=== PATIENT | male | born 1995 | race Caucasian/White ===

== ENCOUNTER 2016-06-23 05:53 | Emergency (ER) | payer SELFPAY ==
[~2016-06-23] VITALS: Ht 185.4 cm; Wt 68.0 kg
[~2016-06-23 05:53] MED LIST: ACET-2267 PO; ACET-819 PO; ACHD5005 PO; AZIT250T5 PO; CEPH500T PO; CLIN-62 PO; CLIN300C11 PO; CLN150C PO; HYDR1TAB8 PO; IBP600T1 PO; IBP800T PO; IBUP-30 PO; PRD20T PO; Robitussin; SULF1TAB38 PO; TRAM50TA2 PO
--- OUTSIDE RECORDS SUMMARY | 2016-06-23 06:01 | XMS REPORT | Continuity of Care Document ---
Author Author [facility] Organization [facility] Address Unknown Phone Unavailable Care Team Providers Care Anesthesiology Teacher Name Role Phone SHAHIDA GREENBERG DO PCP Insurance Providers Payer Name Policy Number Subscriber Name Relationship Self Pay Pato Hatch 18 Self / Same As Patient Advance Directives Directive Response Recorded Date/Time Advance Directives No 03/25/16 5:15pm Health Care Power of Rv Technician No 03/25/16 5:15pm Organ Donor No 03/25/16 5:15pm Resuscitation Status Full Code 03/25/16 5:15pm Chief Complaint and Reason for Visit Chief Complaint Allergic Reaction Reason for Visit [id number] Problems Active Problems Medical Problem Onset Date Status Acute urticaria Unknown Acute Acute urticaria Unknown Acute Alcohol abuse Unknown Acute Anxiety Unknown Acute Concussion without loss of consciousness Unknown Acute Corneal abrasion Unknown Acute Dental abscess Unknown Acute Dental caries Unknown Acute Dental caries Unknown Acute Gingivitis Unknown Acute Hives Unknown Acute Injury of head, face and neck Unknown Acute Injury resulting from fall from height Unknown Acute Laceration of face Unknown Acute Pharyngitis Unknown Acute Shoulder pain Unknown Acute dental fracture Unknown Acute Medications Current Home Medications Medication Dose Units Route Directions Days/Qty Instructions Start Date Prednisone 20 Mg 20 Mg Oral Daily 4 03/25/16 Past Home Medications Medication Directions Ordered Status Trimethoprim/Sulfamethoxazole 1 Ea Tablet, 1 Ea Oral Twice A Day 11/29/11 Discontinued Prednisone 20 Mg Tab, 20 Mg Oral As Directed 03/18/12 Discontinued Prednisone 20 Mg Tab, 20 Mg Oral Daily 11/22/12 Discontinued Clindamycin Hcl 150 Mg Cap, 3 Each Oral Every 8HRS 02/24/13 Discontinued Ibuprofen 800 Mg Tab, 800 Mg Oral Give Every 8 Hrs On Schedule as needed Discontinued Ibuprofen 800 Mg Tab, 800 Mg Oral Give Every 8 Hrs On Schedule as needed for Pain 04/16/13 Discontinued Acetaminophen/Hydrocodone Bitart 1 Each Tablet, 1-2 Each Oral Every 6 Hours as needed for Pain 04/16/13 Discontinued Clindamycin Hcl 150 Mg Cap, 300 Mg Oral Every 6 Hours 04/18/13 Discontinued Acetaminophen/Hydrocodone Bitart 1 Each Tablet, 1-2 Tab Oral Every 6 Hours as needed for Pain 04/18/13 Discontinued Ibuprofen 600 Mg Tablet, 600 Mg Oral Every 8HRS as needed for Pain 04/18/13 Discontinued Clindamycin Hcl 150 Mg Cap, 300 Mg Oral Every 6 Hours 04/18/13 Discontinued Acetaminophen 500 Mg Tablet, 500 Mg Oral Every 6 Hours as needed for Pain Discontinued Ibuprofen 200 Mg Tablet, 600 Mg Oral Every 6 Hours as needed for Pain Discontinued Hydrocodone Bitartrate/Ibuprofen 1 Each Tablet, 1 Each Oral Every 4HRS for Pain 04/21/13 Discontinued Clindamycin Hcl 150 Mg Cap, 2 Each Oral Four Times Daily 04/21/13 Discontinued Clindamycin Hcl 300 Mg Capsule, 300 Mg Oral Four Times Daily 10/01/15 Discontinued Acetaminophen 500 Mg Tablet, 1000 Mg Oral As Needed 03/20/16 Discontinued [Robitussin] , 03/20/16 Discontinued Azithromycin 250 Mg Tablet, 250 Mg Oral As Directed 03/20/16 Discontinued Azithromycin 250 Mg Tablet, 250 Mg Oral As Directed 03/20/16 Discontinued Social History Social History Problem Response Recorded Date/Time Alcohol Use Occasionally Uses 09/30/2015 9:50pm Recreational Drug Use No 09/30/2015 9:50pm Recent Foreign Travel No 01/25/2014 1:31am Recent Infectious Disease Exposure No 01/25/2014 1:31am Hospitalization with Isolation Denies 01/25/2014 1:31am Smoking Status Current Everyday Smoker 03/25/2016 5:15pm Do you dip or chew tobacco? Yes 09/30/2015 9:50pm Type Used Cigarettes 03/25/2016 5:15pm Recent Hopitalizations Y ed visit 03/25/2016 5:15pm Hospitalization with Isolation Denies 01/25/2014 1:31am Query Response Start Date Stop Date Smoking Status Current Everyday Smoker 03/21/2013 Hospital Discharge Instructions No hospital discharge instructions. Plan of Care Discharge Date 03/25/16 6:38pm Disposition 01 HOME, SELF-CARE Condition at Discharge Improved Instructions/Education Provided Hives Prescriptions See Medication Section Referrals SHAHIDA GREENBERG DO - Primary Care Physician Additional Instructions/Education Avoid exposures that causing door hives. Consider allergy testing with a document processing specialist. Keep Benadryl on hand and take 50 mg at recurrence of hives. Return to care if symptoms worsen area call 911 or present immediately to the emergency room if you have difficulty breathing, tongue swelling, lip swelling, or throat tightening. Use the prednisone as prescribed over the next few days. All discharge instructions reviewed with patient and/or family. Voiced understanding. Functional Status No functional status results. Allergies, Adverse Reactions, Alerts Allergen Type Severity Reaction Status Last Updated Penicillins ([id number]) Allergy Mild Active 11/07/08 Immunizations No immunization records. Vital Signs Acute Vital Signs Vital Response Date/Time Temperature (Fahrenheit) 97.9 degrees F (97.6 - 99.5) 03/25/2016 5:15pm Temperature (Calculated Celsius) 36.04897 degrees C (36.4 - 37.5) 03/25/2016 5:15pm Temperature Source Temporal 03/25/2016 5:15pm Pulse Rate (adult) 83 bpm (60 - 90) 03/25/2016 5:15pm Respiratory Rate 18 bpm (12 - 24) 03/25/2016 5:15pm O2 Sat by Pulse Oximetry 95 % (88 - 100) 03/25/2016 5:15pm Blood Pressure 144/80 mm Hg 03/25/2016 5:15pm Blood Pressure Mean 101 mm Hg 03/25/2016 5:15pm Pain Numeric Pain Scale 8 03/25/2016 5:15pm Height (Feet) 6 feet 03/25/2016 5:15pm Height (Inches) 1 inches 03/25/2016 5:15pm Height (Calculated Centimeters) 185.902852 cm 03/25/2016 5:15pm Weight (Pounds) 155 pounds 03/25/2016 5:15pm Weight (Ounces) 4.0 oz 03/25/2016 5:15pm Weight (Calculated Grams) 87974.818 gm 03/25/2016 5:15pm Weight (Calculated Kilograms) 70.711574 kilograms 03/25/2016 5:15pm Calculated BMI 23.49 03/25/2016 5:15pm Capillary Refill Capillary Refill Less Than 3 Seconds 03/25/2016 5:15pm Results Laboratory Results Test Name Result Units Flags Reference Collection Date/Time Result Date/ Time Comments White Blood Count 8.7 10^3/uL 4.3-11.0 03/20/2016 8:40pm 03/20/2016 8: 54pm Red Blood Count 4.69 10^6/uL 4.35-5.85 03/20/2016 8:40pm 03/20/2016 8: 54pm Hemoglobin 13.6 G/DL 13.3-17.7 03/20/2016 8:40pm 03/20/2016 8:54pm Hematocrit 39 % L 40-54 03/20/2016 8:40pm 03/20/2016 8:54pm Mean Corpuscular Volume 83 FL 80-99 03/20/2016 8:40pm 03/20/2016 8: 54pm Mean Corpuscular Hemoglobin 29 PG 25-34 03/20/2016 8:40pm 03/20/2016 8: 54pm Mean Corpuscular Hemoglobin Concent 35 G/DL 32-36 03/20/2016 8:40pm 8:54pm Red Cell Distribution Width 12.6 % 10.0-14.5 03/20/2016 8:40pm 2015 8:54pm Platelet Count 183 10^3/uL 130-400 03/20/2016 8:40pm 03/20/2016 8:54pm Mean Platelet Volume 9.7 FL 7.4-10.4 03/20/2016 8:40pm 03/20/2016 8: 54pm Neutrophils (%) (Auto) 63 % 42-75 03/20/2016 8:40pm 03/20/2016 8:54pm Lymphocytes (%) (Auto) 24 % 12-44 03/20/2016 8:40pm 03/20/2016 8:54pm Monocytes (%) (Auto) 13 % H 0-12 03/20/2016 8:40pm 03/20/2016 8:54pm Eosinophils (%) (Auto) 0 % 0-10 03/20/2016 8:40pm 03/20/2016 8:54pm Basophils (%) (Auto) 0 % 0-10 03/20/2016 8:40pm 03/20/2016 8:54pm Neutrophils # (Auto) 5.5 X 10^3 1.8-7.8 03/20/2016 8:40pm 03/20/2016 8: 54pm Lymphocytes # (Auto) 2.0 X 10^3 1.0-4.0 03/20/2016 8:40pm 03/20/2016 8: 54pm Monocytes # (Auto) 1.1 X 10^3 H 0.0-1.0 03/20/2016 8:40pm 03/20/2016 8: 54pm Eosinophils # (Auto) 0.0 10^3/uL 0.0-0.3 03/20/2016 8:40pm 03/20/2016 8 :54pm Basophils # (Auto) 0.0 10^3/uL 0.0-0.1 03/20/2016 8:40pm 03/20/2016 8: 54pm Sodium Level 136 MMOL/L 135-145 03/20/2016 8:40pm 03/20/2016 9:15pm Potassium Level 3.8 MMOL/L 3.6-5.0 03/20/2016 8:40pm 03/20/2016 9:15pm Chloride Level 105 MMOL/L 98-107 03/20/2016 8:40pm 03/20/2016 9:15pm Carbon Dioxide Level 23 MMOL/L 21-32 03/20/2016 8:40pm 03/20/2016 9: 15pm Anion Gap 8 MMOL/L -14 03/20/2016 8:40pm 03/20/2016 9:15pm Blood Urea Nitrogen 7 MG/DL 7-18 03/20/2016 8:40pm 03/20/2016 9:15pm Creatinine 0.85 MG/DL 0.60-1.30 03/20/2016 8:40pm 03/20/2016 9:15pm BUN/Creatinine Ratio 8 03/20/2016 8:40pm 03/20/2016 9:15pm Estimat Glomerular Filtration Rate > 60 03/20/2016 8:40pm 2015 9:15pm GFR INTERPRETIVE DATA UNITS FOR ESTIMATED GFR (eGFR): mL/min/1.73 M2 REFERENCE RANGE FOR ESTIMATED GFR (eGFR) eGFR NORMAL eGFR >60 MODERATELY DECREASED eGFR 30-59 SEVERLY DECREASED eGFR 15-29 KIDNEY FAILURE <15 (OR DIALYSIS) Glucose Level 106 MG/DL H 70-105 03/20/2016 8:40pm 03/20/2016 9:15pm Calcium Level 8.7 MG/DL 8.5-10.1 03/20/2016 8:40pm 03/20/2016 9:15pm Total Bilirubin 0.5 MG/DL 0.1-1.0 03/20/2016 8:40pm 03/20/2016 9:15pm Alkaline Phosphatase 43 U/L 40-136 03/20/2016 8:40pm 03/20/2016 9:15pm Aspartate Amino Transf (AST/SGOT) 15 U/L 5-34 03/20/2016 8:40pm 2015 9:15pm Alanine Aminotransferase (ALT/SGPT) 11 U/L 0-55 03/20/2016 8:40pm 03/20 9:15pm Total Protein 6.6 G/DL 6.4-8.2 03/20/2016 8:40pm 03/20/2016 9:15pm Albumin 4.1 G/DL 3.2-4.5 03/20/2016 8:40pm 03/20/2016 9:15pm Monoscreen NEGATIVE NEGATIVE 03/20/2016 8:40pm 03/20/2016 9:09pm Group A Streptococcus Screen NEGATIVE NEGATIVE 03/20/2016 8:40pm 9:11pm Microbiology Results Procedure Source Result Collection Date/Time Result Date/Time Throat Culture Throat No Beta Strep isolated 03/20/2016 8:40pm 03/21/2016 3:30pm Procedures No known history of procedures. Encounters Encounter Location Arrival/Admit Date Discharge/Depart Date Attending Provider Departed Emergency Room [facility] 03/25/16 4:53pm 03/25 6:38pm JUDY ESPINOZA MD Departed Emergency Room [facility] 03/20/16 7:50pm 03/20 9:37pm KOKI POLO APRN Recent Diagnosis
[2016-06-23] MEDS ORDERED: CEPHALEXIN 250 MG (KEFLEX) CAP PO STA (06:16)
[2016-06-23] MEDS ORDERED: HYDROcodone/APAP 5 MG/325 MG (LORTAB) TAB PO STA (06:16)
--- NOTE | 2016-06-23 06:23 | ED EENT ---
History of Present Illness General Chief Complaint: Dental Problems/Pain Stated Complaint: DENTAL PAIN Nursing Triage Note: PT TO ED 8 W/ S.O. FOR C/O DENTAL PAIN ONSET X2 MOS, WORSE YESTERDAY. REPORTS PREVIOUS ABX TX FROM [facility] BUT DENIES IMPROVEMENT Source: patient Exam Limitations: no limitations History of Present Illness Time seen by provider: 06:00 Initial Comments Here with complaint of dental tenderness to the right upper side where he has a known dental caries. He knows he needs to get in with a dentist. He previously had an infection there and was on antibiotics. Things got better. He has not gone back to the dentist yet. Denies fever or chills. Denies nausea or vomiting. Denies breathing or swallowing problems. He has been off antibiotics for a month now. Timing/Duration: this morning Severity: moderate Location: mouth, dental Associated Symptoms: facial pain/swellingNo fever Allergies and Home Medications Allergies Coded Allergies: Penicillins (Unverified Allergy, Mild, 11/07/08) Home Medications Cephalexin 500 Mg Tablet #21 500 MG PO TID Prescribed by: RAMESH SHOEMAKER on 04/15/16 1014 Tramadol HCl 50 Mg Tablet #20 50 MG PO Q6H PRN PRN PAIN Prescribed by: RAMESH SHOEMAKER on 04/15/16 1014 Review of Systems Constitutional: see HPINo chills, No fever Eyes: No Symptoms Reported Ears: No Symptoms Reported Nose: no symptoms reported Mouth: see HPI pain swelling Throat: no symptoms reporteddenies neck stiffness, denies hoarse Respiratory: no symptoms reportedNo short of breath, No wheezing Cardiovascular: no symptoms reported Gastrointestinal: no symptoms reportedNo nausea, No vomiting Past Zdsgaea-Hzrkch-Sxwgzh Hx Patient Social History Alcohol Use: Denies Use Recreational Drug Use: No Smoking Status: Current Everyday Smoker Type Used: Cigarettes Former Smoker/When Quit: Mar 21, 2013 Recent Foreign Travel: No Contact w/Someone Who Travel: No Recent Infectious Disease Expo: No Recent Hopitalizations: No Immunizations Up To Date Tetanus Booster (TDap): Less than 5yrs Seasonal Allergies Seasonal Allergies: No Surgeries HX Surgeries: Yes (DENTAL, JAW SURGERY, MRSA I&D) Respiratory Hx Respiratory Disorders: No Cardiovascular Hx Cardiac Disorders: No Neurological Hx Neurological Disorders: Yes ("BRAIN CYST") Reproductive System Hx Reproductive Disorders: No Genitourinary Hx Genitourinary Disorders: No Gastrointestinal Hx Gastrointestinal Disorders: No Musculoskeletal Hx Musculoskeletal Disorders: No Endocrine Hx Endocrine Disorders: No HEENT HX ENT Disorders: Yes (nose cyst) Cancer Hx Cancer: No Psychosocial Hx Psychiatric Problems: No Integumentary HX Skin/Integumentary Disorder: Yes (OCC. HIVES--UNKNOWN ETIOLOGY: MRSA) Blood Transfusions Hx Blood Disorders: No Adverse Reaction to a Blood Tr: No Reviewed Nursing Assessment Reviewed/Agree w Nursing PMH: Yes Family Medical History Family Medial History: Cancer maternal grandmother, Onset:60 years & older Chest pain 03 FATHER, Onset:30's - 40 Family history: Diabetes mellitus maternal grandmother, Onset:50's - 60 maternal aunt, Onset:40's - 50 Family history: Hypertension 03 FATHER, Onset:30's - 40 Heart disease 03 FATHER, Onset:30's - 40 Kidney disease 03 MOTHER, Onset:15's - 20 09 SISTER, Onset:10's - 15 Physical Exam Vital Signs Vital Sign - Last 12Hours 06/23/16 06:00 Temp 97.2 Pulse 90 Resp 20 B/P 132/87 Pulse Ox 99 O2 Delivery Room Air General Appearance: WD/WN no apparent distress Eyes: bilateral eye EOMI, bilateral eye PERRL, bilateral eye normal inspection Ears: bilateral ear TM normal, bilateral ear auricle normal, bilateral ear canal normal Nose: normal inspection Mouth/Throat: pharynx normal dental tenderness maxillary swelling (right side near tooth #3)No pharynx swelling, No trismus, No uvula swelling Neck: full range of motion suppleNo lymphadenopathy (R), No lymphadenopathy (L ) Cardiovascular: regular rate, rhythm no murmur Respiratory: lungs clear normal breath sounds Neurologic/Psychiatric: alert oriented x 3 Skin: normal color warm/dry other (no erythema to the face noted. There is swelling on the right maxillary region.) Laceration Repair : Suture Size: 5-0 Progress/Results/Core Measures Results/Orders My Orders Orders-RAMESH SHOEMAKER MD Hydrocodone/Apap 5/325 Tablet (Lortab 5 (06/23/16 06:16) Cephalexin Capsule (Keflex Capsule) (06/23/16 06:16) Vital Signs/I&O Vital Sign - Last 12Hours 06/23/16 06:00 Temp 97.2 Pulse 90 Resp 20 B/P 132/87 Pulse Ox 99 O2 Delivery Room Air Blood Pressure Mean: 102 Progress Note : Progress Note Seen and evaluated. Keflex 500 mg by mouth. Hydrocodone 5/325 one tab by mouth. I did discuss with him at length about the importance of following up with a dentist. He reports understanding. Discharged home with return precautions. Patient verbalize understanding instructions and agreement with plan. Departure Impression Impression: Primary Impression: Dental abscess Additional Impression: Dental caries Disposition: HOME, SELF-CARE Condition: Stable Departure-Patient Inst. Decision time for Depature: 06:23 Referrals: SHAHIDA GREENBERG DO (PCP/Family) Primary Care Physician Patient Instructions: Tooth Abscess (DC), Tooth Decay, Adult (DC) Add. Discharge Instructions: All discharge instructions reviewed with patient and/or family. Voiced understanding. Take antibiotics as directed. You may take ibuprofen 800 mg every 8 hours as needed for pain. He may take the pain medicine as prescribed. If you are not taking that medicine he may take Tylenol 1000 mg every 8 hours as needed for pain. Do not take with prescribed pain medicine as both have Tylenol in it. It is vitally important that you follow-up with the dentist as soon as possible as the tooth needs to be repaired and this problem will continue if you do not have dental intervention. Return for worse pain, fever, vomiting, weakness, breathing problems or other concerns as needed. Scripts Hydrocodone/Acetaminophen (Hydrocodon -Acetaminophen 5-325)1 Each Tablet1 Each PO Q6H PRN PAIN #12 TAB Prov:RAMESH SHOEMAKER MD 06/23/16 Cephalexin 500 Mg [id number] Mg PO QID #28 TAB Ref 0 Prov:RAMESH SHOEMAKER MD 06/23/16 Work/School Note: Work Release Form Date Seen in the Emergency Department: Jun 23, 2016 Return to Work: Jun 24, 2016 Restrictions: No Restrictions Images Mouth/Nose 1 - Caries, Swelling, Tenderness RAMESH SHOEMAKER MD Jun 23, 2016 06:22
[2016-06-23 06:26] VITALS: BP 0/0
[2016-06-23] MEDS ORDERED: CEPH500T PO (06:26)
[2016-06-23] MEDS ORDERED: HYDR-3812 PO (06:26)
== END 2016-06-23 06:26 | disposition home or self-care (01) ==
LOC: EDUNIT# 05:53 → ER 05:56
DX: K04.7 Periapical abscess without sinus (principal); K02.9 Dental caries, unspecified
CPT/HCPCS: 99282

== ENCOUNTER 2016-09-08 10:06 | Emergency (ER) | payer SELFPAY ==
[~2016-09-08] VITALS: Ht 185.4 cm; Wt 68.0 kg
[~2016-09-08 10:06] MED LIST changes: +HYDR-3812 PO
--- NOTE | 2016-09-08 10:44 | ED Lower Extremity ---
General Chief Complaint: Lower Extremity Stated Complaint: RIGHT FOOT INJURY Nursing Triage Note: c/o pain to bottom of right. Pt stepped on a nail yesterday with approx 1" penetration. Pt removed the nail. Puncture wound noted bottom of foot. Nursing Sepsis Screen: No Definite Risk Source: patient Exam Limitations: no limitations History of Present Illness Time seen by provider: 10:42 Initial Comments Stepped on a nail with right foot yesterday. Tetanus is up to date. Onset: just prior to arrival Severity: moderate Pain/Injury Location: right foot Allergies and Home Medications Allergies Coded Allergies: Penicillins (Unverified Allergy, Mild, 11/07/08) Constitutional: see HPI EENTM: see HPI Respiratory: no symptoms reported Cardiovascular: no symptoms reported Genitourinary: no symptoms reported Musculoskeletal: see HPI Skin: no symptoms reported Psychiatric/Neurological: No Symptoms Reported Past Qcdoojb-Zmdtiw-Ivzydk Hx Patient Social History Alcohol Use: Denies Use Recreational Drug Use: No Smoking Status: Current Everyday Smoker Type Used: Cigarettes Former Smoker/When Quit: Mar 21, 2013 Recent Foreign Travel: No Contact w/Someone Who Travel: No Recent Infectious Disease Expo: No Recent Hopitalizations: No Immunizations Up To Date Tetanus Booster (TDap): Less than 5yrs Seasonal Allergies Seasonal Allergies: No Surgeries HX Surgeries: Yes (DENTAL, JAW SURGERY, MRSA I&D) Respiratory Hx Respiratory Disorders: No Cardiovascular Hx Cardiac Disorders: No Neurological Hx Neurological Disorders: Yes ("BRAIN CYST") Reproductive System Hx Reproductive Disorders: No Genitourinary Hx Genitourinary Disorders: No Gastrointestinal Hx Gastrointestinal Disorders: No Musculoskeletal Hx Musculoskeletal Disorders: No Endocrine Hx Endocrine Disorders: No HEENT HX ENT Disorders: Yes (nose cyst) Cancer Hx Cancer: No Psychosocial Hx Psychiatric Problems: No Integumentary HX Skin/Integumentary Disorder: Yes (OCC. HIVES--UNKNOWN ETIOLOGY: MRSA) Blood Transfusions Hx Blood Disorders: No Adverse Reaction to a Blood Tr: No Family Medical History Family Medial History: Cancer maternal grandmother, Onset:60 years & older Chest pain 03 FATHER, Onset:30's - 40 Family history: Diabetes mellitus maternal grandmother, Onset:50's - 60 maternal aunt, Onset:40's - 50 Family history: Hypertension 03 FATHER, Onset:30's - 40 Heart disease 03 FATHER, Onset:30's - 40 Kidney disease 03 MOTHER, Onset:15's - 09 SISTER, Onset:10's - 15 Physical Exam Vital Signs Vital Sign - Last 12Hours 09/08/16 10:17 Temp 98.1 Pulse 126 Resp 16 B/P (MAP) 122/78 O2 Delivery Room Air Capillary Refill : Less Than 3 Seconds General Appearance: WD/WN, no apparent distress HEENT: PERRL/EOMI, normal ENT inspection Neck: non-tender, full range of motion Respiratory: no respiratory distress, no accessory muscle use Hips: bilateral hip non-tender, bilateral hip normal inspection, bilateral hip normal range of motion, bilateral hip no evidence of injury Legs: bilateral leg non-tender, bilateral leg normal inspection, bilateral leg normal range of motion Knees: bilateral knee non-tender, bilateral knee normal inspection, bilateral knee normal range of motion Ankles: bilateral ankle non-tender, bilateral ankle normal inspection, bilateral ankle normal range of motion Feet: right foot pain, right foot soft tissue tenderness, right foot other ( puncute wound over plantar surface of foot just anterior to calcaneus wihtout surrounding fluctuance or erythema or drainage from the puncture wound) Neurologic/Psychiatric: alert, normal mood/affect, oriented x 3 Skin: normal color, warm/dry Laceration Repair : Suture Size: 5-0 Progress/Results/Core Measures Results/Orders My Orders Orders - KOKI POLO APRN Foot, Right, 3 View (09/08/16 10:40) Ankle, Right, 3 Views (09/08/16 10:40) Vital Signs/I&O Vital Sign - Last 12Hours 09/08/16 10:17 Temp 98.1 Pulse 126 Resp 16 B/P (MAP) 122/78 O2 Delivery Room Air Blood Pressure Mean: 93 Departure Communication Progress Notes Patient would like a walking boot rather than crutches so that he would be able to work because he cannot work with crutches. Impression Impression: Primary Impression: Puncture wound of foot Disposition: 01 HOME, SELF-CARE Condition: Stable Departure-Patient Inst. Decision time for Depature: 10:47 Referrals: SHAHIDA GREENBERG DO (PCP/Family) Primary Care Physician Patient Instructions: Wound Care Add. Discharge Instructions: 1. Return to ER for any concerns 2. Antibiotics as directed 3. Pain medication as directed. When this runs out use Tylenol and Motrin. All discharge instructions reviewed with patient and/or family. Voiced understanding. Scripts Hydrocodone/Acetaminophen ([place] 5-325 Tablet) 1 Each Tablet 1 EACH PO Q4H Y for PAIN-MILD TO MODERATE, #5 TAB Prov: KOKI POLO APRN 09/08/16 Sulfamethoxazole/Trimethoprim (Bactrim Ds Tablet) 1 Each Tablet 1 EACH PO BID, #10 TAB Prov: KOKI POLO APRN 09/08/16 KOKI POLO APRN September 08, 2016 10:44
[2016-09-08] MEDS ORDERED: HYDR-757 PO (10:48)
[2016-09-08] MEDS ORDERED: SULF1TAB35 PO (10:48)
[2016-09-08 10:57] VITALS: BP 122/70
--- NOTE | 2016-09-08 11:06 | Diagnostic Imaging Report ---
INDICATION: Injury to right ankle. AP, oblique, and lateral views of the right ankle are obtained. FINDINGS: No fracture or acute bony abnormality is seen. There is no radiopaque foreign body. IMPRESSION: Negative right ankle. Dictated by: Dictated on workstation # [id number]
--- NOTE | 2016-09-08 11:08 | Diagnostic Imaging Report ---
INDICATION: Right foot pain AP, oblique, and lateral views of the right foot were obtained. No fracture or radiopaque foreign body is seen. Joint spaces are unremarkable. IMPRESSION: Negative right foot. Dictated by: Dictated on workstation # [id number]
== END 2016-09-08 10:57 | disposition home or self-care (01) ==
LOC: EDUNIT# 10:06 → ER 10:09
DX: S91.331A Puncture wound without foreign body, right foot, initial encounter (principal); F17.210 Nicotine dependence, cigarettes, uncomplicated; W45.0XXA Nail entering through skin, initial encounter; Y92.019 Unspecified place in single-family (private) house as the place of occurrence of the external cause; Y99.8 Other external cause status
CPT/HCPCS: 73610; 73630; 99283

== ENCOUNTER 2016-12-03 13:50 | Emergency (ER) | payer SELFPAY ==
[~2016-12-03] VITALS: Ht 182.9 cm; Wt 65.8 kg
[~2016-12-03 13:50] MED LIST changes: +AZIT250T12 PO; -AZIT250T5 PO; +HYDR-757 PO; +SULF1TAB35 PO
--- NOTE | 2016-12-03 14:45 | ED Integumentary General ---
General Chief Complaint: Skin/Wound Problems Stated Complaint: RASH Nursing Triage Note: scattered erythematous macules noted over body. Onset 1100 today. 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 Source: patient, spouse Exam Limitations: no limitations History of Present Illness Time seen by provider: 14:40 Initial Comments Patient presents to ER by private conveyance with his spouse with a chief complaint of a fine axillar rash that has started about 11:30 this morning all over his 4 extremities and trunk. It is not involving oral mucosa palms or soles. It does not itch and he has no fevers nausea chills fatigue recent illnesses recent antibiotic use. He does not take any medicines. He does occasionally get hives but is not sure what his triggers are and he thought at first is mild and high so he took 3 tablets of Benadryl. He's not had any itching prior to or after the Benadryl. He denies changing soaps or detergents laundry softeners or taking any other medications or bnej-vak-ejqvubt meds. He has not recently been ill or had a sore throat or other viral symptoms. Allergies and Home Medications Allergies Coded Allergies: Penicillins (Unverified Allergy, Mild, 11/07/08) Home Medications Hydrocodone/Acetaminophen 1 Each Tablet, 1 EACH PO Q4H PRN for PAIN-MILD TO MODERATE, #5 Prescribed by: KOKI POLO on 09/08/16 1048 Sulfamethoxazole/Trimethoprim 1 Each Tablet, 1 EACH PO BID, #10 Prescribed by: KOKI POLO on 09/08/16 1048 Constitutional: No chills, No diaphoresis, No fever EENTM: No ear pain, No eye pain Respiratory: No cough Gastrointestinal: No abdominal pain, No constipation, No diarrhea, No nausea, No vomiting Genitourinary: No discharge, No dysuria Musculoskeletal: No back pain, No joint pain, No muscle stiffness, No muscle cramps, No muscle weakness, No neck pain Skin: see HPI, No dryness, No pruritus, rash Psychiatric/Neurological: Denies Headache, Denies Numbness, Denies Paresthesia , Denies Seizure, Denies Tingling, Denies Tremors, Denies Weakness Past Zsrnfse-Rqdslm-Ksgymp Hx Patient Social History Alcohol Use: Occasionally Uses Recreational Drug Use: No Type Used: Cigarettes Former Smoker/When Quit: Mar 21, 2013 Recent Foreign Travel: No Contact w/Someone Who Travel: No Recent Infectious Disease Expo: No Recent Hopitalizations: No Immunizations Up To Date Tetanus Booster (TDap): Less than 5yrs Seasonal Allergies Seasonal Allergies: No Surgeries HX Surgeries: Yes (DENTAL, JAW SURGERY, MRSA I&D) Respiratory Hx Respiratory Disorders: No Cardiovascular Hx Cardiac Disorders: No Neurological Hx Neurological Disorders: Yes ("BRAIN CYST") Reproductive System Hx Reproductive Disorders: No Genitourinary Hx Genitourinary Disorders: No Gastrointestinal Hx Gastrointestinal Disorders: No Musculoskeletal Hx Musculoskeletal Disorders: No Endocrine Hx Endocrine Disorders: No HEENT HX ENT Disorders: Yes (nose cyst) Cancer Hx Cancer: No Psychosocial Hx Psychiatric Problems: No Integumentary HX Skin/Integumentary Disorder: Yes (OCC. HIVES--UNKNOWN ETIOLOGY: MRSA) Blood Transfusions Hx Blood Disorders: No Adverse Reaction to a Blood Tr: No Family Medical History Family Medial History: Cancer maternal grandmother, Onset:60 years & older Chest pain 03 FATHER, Onset:30's - 40 Family history: Diabetes mellitus maternal grandmother, Onset:50's - 60 maternal aunt, Onset:40's - 50 Family history: Hypertension 03 FATHER, Onset:30's - 40 Heart disease 03 FATHER, Onset:30's - 40 Kidney disease 03 MOTHER, Onset:15's - 20 09 SISTER, Onset:10's - 15 Physical Exam Vital Signs Vital Sign - Last 12Hours 12/03/16 14:12 Temp 98.1 Pulse 68 Resp 16 B/P (MAP) 130/100 O2 Delivery Room Air Capillary Refill : Less Than 3 Seconds General Appearance: WD/WN, no apparent distress HEENT: PERRL/EOMI, normal ENT inspection, TMs normal, pharynx normal Neck: non-tender, full range of motion, supple, normal inspection Cardiovascular: normal peripheral pulses, regular rate, rhythm Respiratory: chest non-tender, lungs clear, normal breath sounds Gastrointestinal: normal bowel sounds, non tender, soft Skin: warm/dry, No jaundice, No pallor, rash (fine macular nonpruritic and non- papular rash on the 4 extremities and trunk. Sparing mucosa soles and palms.) Lymphatic: no adenopathy Laceration Repair : Suture Size: 5-0 Progress/Results/Core Measures Results/Orders Vital Signs/I&O Vital Sign - Last 12Hours 12/03/16 14:12 Temp 98.1 Pulse 68 Resp 16 B/P (MAP) 130/100 O2 Delivery Room Air Blood Pressure Mean: 110 Progress Note : Time: 14:43 Progress Note No recent illnesses could possibly be a exanthem as his son recently had a viral exanthem that went away before he was able to get in to be seen by the doctor. I recommended we watch the rash and use cetirizine or Benadryl if it becomes itchy. If it persists tomorrow then call his PCP and be seen and have some workup initiated. Does not look like hives. No airway compromise. Departure Impression Impression: Primary Impression: Rash and nonspecific skin eruption Disposition: HOME, SELF-CARE Condition: Stable Departure-Patient Inst. Decision time for Depature: 14:44 Referrals: SHAHIDA GREENBERG DO (PCP) Primary Care Physician Patient Instructions: Skin Rash (DC) Add. Discharge Instructions: If you're rash worsens or you start to develop new symptoms such as a sore throat, fever, nausea, stiff neck, headaches he should return to the ER otherwise plan on following up with her primary care physician this week. If it itching at be okay to take Zyrtec or Benadryl as needed. All discharge instructions reviewed with patient and/or family. Voiced understanding. Copy Copies To 1: SHAHIDA GREENBERG TITUS J Dec 03, 2016 14:45
[2016-12-03 14:55] VITALS: BP 132/92
== END 2016-12-03 14:55 | disposition home or self-care (01) ==
LOC: EDUNIT# 13:50 → ER 13:52
DX: R21 Rash and other nonspecific skin eruption (principal); Z86.14 Personal history of Methicillin resistant Staphylococcus aureus infection; Z82.49 Family history of ischemic heart disease and other diseases of the circulatory system
CPT/HCPCS: 99282

== ENCOUNTER 2017-04-05 03:56 | Emergency (ER) | payer SELFPAY ==
[~2017-04-05] VITALS: Ht 182.9 cm; Wt 65.9 kg
[2017-04-05] MEDS ORDERED: LIDOCAINE 2% 20 ML (XYLOCAINE) VIAL ONE (04:05)
[2017-04-05] MEDS ORDERED: RX-TRIMETH/SULFA. 160-800 MG (BACTRIM DS) TAB PPK#2 PO STA (04:10)
[2017-04-05] MEDS ORDERED: LIDOCAINE 2% 20 ML (XYLOCAINE) VIAL INJ ONE (04:15)
[2017-04-05] MEDS ORDERED: SULF1TAB35 PO (04:19)
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
[2017-04-05 04:32] VITALS: BP 141/96
--- NOTE | 2017-04-05 06:27 | Diagnostic Imaging Report ---
INDICATION: Right hand laceration 3 views of the right hand show no fracture, dislocation or radiopaque foreign object. IMPRESSION: Negative right hand Dictated by: Dictated on workstation # [id number]
== END 2017-04-05 04:34 | disposition home or self-care (01) ==
LOC: EDUNIT# 03:56 → ER 04:00
DX: S66.221A Laceration of extensor muscle, fascia and tendon of right thumb at wrist and hand level, initial encounter (principal); F10.129 Alcohol abuse with intoxication, unspecified; Z87.891 Personal history of nicotine dependence; Z86.14 Personal history of Methicillin resistant Staphylococcus aureus infection; Z82.49 Family history of ischemic heart disease and other diseases of the circulatory system; W25.XXXA Contact with sharp glass, initial encounter
CPT/HCPCS: 73130; 99283